=== PATIENT | female | born 1940 | race Caucasian/White ===

== ENCOUNTER 2016-11-07 19:49 | Inpatient (IN) | payer BC ==
[~2016-11-07] VITALS: Ht 157.5 cm; Wt 72.8 kg
--- NOTE | ~2016-11-07 | HP ---
History And Physical [facility] [address] [place] [place]. [address] NAME: DENISSE BENAVIDEZ : 40 STATUS : ADM IN [facility]#: [id number] AGE: 76 ADM/REG DATE : 11/07/16 MR#: [id number] REPORT SERV DATE: 11/08/16 DICTATED BY: JORGE WALL DATE: 11/07/16 REPORT STATUS : Draft TRANSCRIBED BY: MODL DATE: 11/07/16 DATE OF ADMISSION: 11/07/2016 CHIEF COMPLAINT: Generalized weakness and urinary tract infection. HISTORY OF PRESENT ILLNESS: This is a 76-year-old female with a history of diabetes mellitus, hypertension, and recently diagnosed urinary tract infection who presents to the emergency room at [facility] with the above-mentioned complaint. History is obtained from the patient and reviewing data available on the [facility]. According to Mrs. Benavidez, she had been to [facility] in [facility] yesterday where she was diagnosed with urinary tract infection. She was prescribed a course of outpatient Macrobid, but she took two doses and started having nausea and some diarrhea as well. She could take no more of that medicine. Meanwhile, she continued to get worse. She started having profound weakness and could not perform activities of daily living or even walk across her own home. She decided to come to the emergency room here to be re- evaluated. In the emergency room, she had severe sepsis with a procalcitonin of 0.73. Her temperature was 100.2 degrees Fahrenheit. Her blood pressure was 108/56, and platelets were 95. Hospitalist Service is asked to admit her for further evaluation and treatment. At the time of my evaluation, she denied any chest pain or palpitations. She had no orthopnea. She had no cough, hemoptysis, night sweats, or weight loss. She denied any recent falls or loss of consciousness. No history of fevers or chills that she measured. She did have a history of nausea, but no vomiting. She did have diarrhea. No history of hematemesis, hematochezia, or hematuria. No other history of recent travel or exposures other than those mentioned above. PAST MEDICAL HISTORY: Her past medical history is significant for history of diabetes mellitus and hypertension. SOCIAL HISTORY: She does not smoke, drink, or use recreational drugs. FAMILY HISTORY: Noncontributory. MEDICATIONS: Her medications at home were reviewed by me in the chart today and reordered by me. REVIEW OF SYSTEMS: As in history of present illness. All other systems were reviewed in detail and are quite unremarkable. PHYSICAL EXAMINATION: GENERAL: This is a pleasant, 76-year-old, not in any acute distress. She is alert, awake, oriented to time, place, and person. History And Physical [address] [address] NAME: DENISSE BENAVIDEZ : 40 STATUS : ADM IN PAT#: [id number] AGE: 76 ADM/REG DATE : 11/07/16 MR#: [id number] REPORT SERV DATE: 11/08/16 DICTATED BY: JORGE WALL DATE: 11/07/16 REPORT STATUS : Draft TRANSCRIBED BY: PILAR DATE: 11/07/16 HEENT: Her head is atraumatic and normocephalic. Her pupils are equal, reacting to light and accommodating. External ocular muscles are intact. Membranes are moist and pink. Sclerae are nonicteric. NECK: Supple with no jugular venous distention, lymphadenopathy, or thyromegaly. LUNGS: Clear to auscultation with no wheezes, rubs, or crackles. HEART: Heart sounds were regular with no murmurs, rubs, or gallops. ABDOMEN: Soft and nontender. Bowel sounds are present. EXTREMITIES: Showed no cyanosis, clubbing, or edema. NEURO: Grossly intact. No focal, sensory or motor deficits. Higher functions appear intact. Gait was not examined. VITAL SIGNS: Her vital signs today showed a temperature of 100.2 degrees Fahrenheit, pulse was 99, respirations were 20 a minute, blood pressure upon arrival was 108/56, and oxygen saturations were 94% breathing 2 liters of oxygen via nasal cannula. LABORATORY DATA: Reviewed on the [facility] showed a sodium of 130, potassium was 3.4, chloride 93, CO2 of 25, BUN was 25 with a creatinine of 1.38, which is slightly above her baseline. Blood glucose was 200. Alkaline phosphatase, ALT, and AST were within normal limits. Troponin was 0.02. Lactate was 1.5, however, her procalcitonin was elevated at 0.73. CBC showed a white blood cell count of 5500; hemoglobin was 13; hematocrit 36.7; and platelet count was down to 95,000, it was 141,000 yesterday, and more than 200,000 on 08/09/2016. Her prothrombin time was 15.3 today with an INR of 1.2. Urinalysis today was unremarkable, but yesterday when she had presented to [facility], she had moderate leukocyte esterase, nitrite was negative, she had 10 wbc's, and rare bacteria. Films of the chest x-ray done in the emergency room today was reviewed by me on the PACS today and interpreted by me. Per my interpretation, there is normal bony architecture with no cardiomegaly. There were no new lung infiltrates or pleural effusions seen. IMPRESSION: 1. Urinary tract infection. 2. Severe sepsis. 3. Generalized weakness. 4. Failed outpatient therapy. 5. Thrombocytopenia. 6. Diabetes mellitus with hyperglycemia. 7. Hypokalemia. 8. Acute kidney injury. 9. Hypertension. PLAN: We will admit Mrs. Benavidez to a cardiac telemetry bed for close monitoring. After cultures are drawn, we will start her on empiric IV antibiotics for sepsis. We will start her on cefepime and vancomycin. We will follow aggressive volume replacement with 2 liters of lactated Ringer's now and then continue maintenance therapy. We will measure outputs and weights as well. We will replace her potassium meanwhile, follow this with chemistry and electrolytes in the morning along with a CBC with a differential as well. We will follow her lactate as well. We will start her on blood sugar control with NovoLog given subcutaneously per sliding scale and start her on SCDs for DVT prophylaxis. I have discussed the above plans with the patient. Her questions were answered and she is History And Physical [address] [place]. [address] NAME: DENISSE BENAVIDEZ : 40 STATUS : ADM IN [facility]#: [id number] AGE: 76 ADM/REG DATE : 11/07/16 MR#: [id number] REPORT SERV DATE: 11/08/16 DICTATED BY: JORGE WALL DATE: 11/07/16 REPORT STATUS : Draft TRANSCRIBED BY: PILAR DATE: 11/07/16 agreeable to the above recommendations. MR/PILAR Jorge Wall M.D. / [id number] CC: MD Vladimir Barker M.D.
--- NOTE | ~2016-11-07 | CN ---
Consultation Report [facility] [address] [place]. [address] NAME: DENISSE VYAS : 40 STATUS : ADM IN [facility]#: [id number] AGE: 76 ADM/REG DATE : 11/07/16 MR#: [id number] REPORT SERV DATE: 11/09/16 DICTATED BY: WALTER PHILLIPS DATE: 11/09/16 REPORT STATUS : Draft TRANSCRIBED BY: MODL DATE: 11/09/16 INFECTIOUS DISEASE CONSULT DATE OF CONSULTATION: REASON FOR REFERRAL: Evaluation and treatment of unexplained fever. HISTORY OF PRESENT ILLNESS: The patient is a 76-year-old female. She has history of hypertension, diabetes, which she manages as an outpatient. She is very healthy for age, mentioning the fact she has not been hospitalized since her last child was born 55 years ago. She was doing well at home until about five days ago when she began feeling abruptly ill with malaise, then fevers, marked weakness to the point she could hardly get up and get around, achiness all over, somewhat of a headache, although, she describes it as aching in the posterior neck that radiated up into her head. She was seen in the emergency room four days ago and told she had urinary tract infection, given Macrodantin and only at that point did she get any gastrointestinal symptoms, nausea, and diarrhea, and those went away when she stopped that antibiotic. On 11/07/2016, she was getting worse, so she came in and was admitted. She has since had worsening fevers first to 101, now over 102. Blood cultures were sent thus far those are negative. A chest x-ray showed no infiltrate. Urinalysis was not consistent with infection. She had no abdominal pain or findings on exam. No rashes signs of cellulitis or soft tissue infection. Of note, her labs show a steadily worsening white blood cell count going from 5.5 on 11/06/2016, to 3.2 today. Mild anemia 35.8, admission 34.3, platelets a 141 at presentation, now down to 65, unremarkable differential on the white blood cell count. She has a mild elevation in creatinine and also a mild elevation in AST which was actually going up between 11/06/2016 and 11/07/2016. Her symptoms continued to be relatively nonspecific with achiness, fever, chills, sweats, and pain. [place] She works a lot in her yard and is frequently exposed to ticks or not does mention really any other organisms. She has had no animal exposure. No travel exposures. Lives with her who is well. She has been exposed to young children foster children of a grandchild, but none of them have been ill with febrile illnesses that she is aware of. No other unusual environmental exposures. PAST MEDICAL HISTORY: Otherwise unremarkable. MEDICATIONS: She is on vancomycin and cefepime, that have been started empirically here. ALLERGIES: NO KNOWN ANTIMICROBIAL ALLERGIES. SOCIAL HISTORY: She lives at home with her . Nonsmoker. No history of alcohol or substance abuse. FAMILY HISTORY: Noncontributory. PHYSICAL EXAMINATION: Consultation Report [address] [place]. [address] NAME: DENISSE VYAS : 40 STATUS : ADM IN [facility]#: [id number] AGE: 76 ADM/REG DATE : 11/07/16 MR#: [id number] REPORT SERV DATE: 11/09/16 DICTATED BY: WALTER PHILLIPS DATE: 11/09/16 REPORT STATUS : Draft TRANSCRIBED BY: PILAR DATE: 11/09/16 GENERAL: Mildly ill-appearing elderly female, in no acute distress. Alert and oriented. VITAL SIGNS: Her temperature did reach 102.4 last evening, it is 98.9 at present, with a pulse of 69, respirations 16, blood pressure 96/55, weight 72 kg. HEENT: Sclerae are clear. There are no oropharyngeal lesions. NECK: Supple without meningeal signs or lymphadenopathy. LUNGS: Clear. HEART: Regular rate and rhythm. No murmurs appreciated. ABDOMEN: Soft, nontender. Positive bowel sounds. No masses or hepatosplenomegaly. EXTREMITIES: Without clubbing, cyanosis, or edema. No swollen, red, or hot joints. No skin lesions or rashes. LABORATORY DATA: CBC as previously described. BUN and creatinine are 32 and 1.42. Transaminases as previously described. Her procalcitonin 0.73 at admission, 0.95 today stated blood cultures are negative. IMPRESSION: With the negative workup and looking at her blood work it all looks most suggestive Ehrlichiosis and with her tick exposure I think that is by far in a way the most likely diagnosis. Cytomegalovirus could also cause this sort of presentation with these lab abnormalities, but it would be unusual in a 76-year-old, and she has had no obvious exposure. I do not see any other likely infectious explanations at this point. RECOMMENDATIONS: 1. We will begin doxycycline with a loading dose first four doses. 2. Stop further antibiotics. 3. Check a PCR for Ehrlichiosis. Finally, I will follow the patient with you. 4. I appreciate very much your consulting on this patient. ALIVIA Watler Phillips M.D. / [id number] CC: Minnie Malone M.D.
--- NOTE | ~2016-11-07 | DS ---
Discharge Summary [facility] [address] [place]. [address] NAME: DENISSE VYAS : 40 STATUS : DIS IN PAT#: [id number] AGE: 76 ADM/REG DATE : 11/07/16 MR#: [id number] REPORT SERV DATE: 11/13/16 DICTATED BY: ASHLEY PEDROZA DATE: 11/12/16 REPORT STATUS : Draft TRANSCRIBED BY: MODYadiel DATE: 11/12/16 ADMISSION DATE: 11/07/2016 DISCHARGE DATE: 11/12/2016 DISCHARGE DIAGNOSES: 1. Ehrlichiosis. 2. Febrile illness secondary to above. Sepsis secondary to above. 3. Acute kidney injury, resolved. 4. Metabolic acidosis, resolved. 5. Dehydration, resolved. 6. Generalized weakness, resolved. 7. Superficial thrombophlebitis. 8. Type 2 diabetes. 9. Failure to thrive, resolved. CONSULTS: Infectious Disease, Dr. Rafael Will. FOLLOWUP: 1. The patient should follow up with her primary care physician in one week for repeat CBC and for followup for superficial thrombophlebitis. 2. The patient should also follow up with the primary care physician for an outpatient repeat right upper extremity venous Doppler ultrasound to rule out any progression of her superficial thrombus. DISCHARGE MEDICATIONS: 1. Amlodipine 5 mg p.o. daily, doxycycline 100 mg p.o. q.12 hours for 12 days. The patient informed to remain upright for at least 30 minutes after taking antibiotic and to use a minimum of 8 ounces of fluids with antibiotics. 2. Eye drops q.h.s. 3. Januvia 100 mg p.o. daily. IMAGIN. Chest x-ray showing no acute cardiopulmonary process. 2. Venous Doppler ultrasound of the right upper extremity with acute appearing superficial venous thrombus involving the right cephalic vein from the mid right upper arm to the mid forearm level. No right upper extremity DVT identified. 3. Venous Doppler ultrasound of the bilateral lower extremity showing no evidence of acute DVT in the lower extremities. Read by Dr. Conor Huddleston. 4. Hospitalist, Dr. Jorge Gallardo; Dr. Pedroza. HOSPITAL COURSE: This is a 76-year-old female with a past medical history of hypertension, and type 2 diabetes, being followed by Dr. Vladimir Muñoz, primary care physician. The patient presented with a chief complaint of generalized weakness and suspected urinary tract infection. The patient states that she was recently diagnosed with urinary tract infection and was prescribed a course of Macrobid for which the patient completed approximately two doses and began to have loose stool, nausea overall, feeling weak, not tolerating much of Discharge Summary [facility] [address] [place]. [address] NAME: DENISSE VYAS : 40 STATUS : DIS IN PAT#: [id number] AGE: 76 ADM/REG DATE : 11/07/16 MR#: [id number] REPORT SERV DATE: 11/13/16 DICTATED BY: ASHLEY PEDROZA DATE: 11/12/16 REPORT STATUS : Draft TRANSCRIBED BY: PILAR DATE: 11/12/16 intake. She presented to [facility] ER with a procalcitonin of 0.73, mildly elevated, and a temperature of 100.2 and some thrombocytopenia of 95,000 platelets. She was admitted to the Hospitalist Service, initially suspected to have urinary tract infection, however, urine culture was negative. The patient continued to have some decreasing of her platelets, decreased from 95,000 down to 65,000 and low-grade fevers. The blood cultures were also no growth to date and also no signs of pneumonia. The patient states that she does frequent gardening. She denied any recent mosquito bites, but did confirm several tick bites. Infectious Disease was consulted, and the patient's antibiotic was changed over from IV Zosyn to doxycycline for suspected ehrlichiosis. The patient's ehrlichiosis PCR eventually came back positive. She was continued on her doxycycline. Her fevers resolved. Also, platelet count began to improve daily after doxycycline initiation, platelet count increased up to 98,000. The patient was informed to follow up with her primary care physician in one week for repeat CBC. Also, the patient remained afebrile and her failure to thrive resolved, and the patient was tolerating oral intake with improved functional capacity and not required any assistance with ambulation, much improved and doing a lot better. The patient also was informed of the diagnoses and also informed to refrain from tick bites. She was approved for discharge also by Infectious Disease, but she did have some swelling of the right upper extremity from her IV, found to have superficial cephalic vein thrombosis. Recommended to the patient to follow up with her primary care physician for an outpatient right upper extremity repeat venous Doppler ultrasound to rule out any progression of the thrombus to DVT, but there were no signs of DVT during her hospitalization. She was discharged to home much improved and ready to get home and clinically stable. BREANN/PILAR Ashley Pedroza M.D. / [id number] CC: Minnie Malone M.D.
[2016-11-07 21:27] LABS: ASCORBIC ACID (UR NOT ORDER) NEG (NEG); BILIRUBIN, URINE NEGATIVE (NEG); ER URINALYSIS TAT 0 Hrs 15 Mins; KETONE, URINE 20 MG/DL (NEG); LEUKOCYTE ESTERASE(NOT OR NEG (NEG); NITRITE (URINE) NEG (NEG); WBC (NOT ORDERED) (RFLEX) 3 (0-5)
[2016-11-07 21:33] LABS: BASOPHILS 0.4 %; BASOPHILS ABSOLUTE 0.02 10/3/uL (0.0-0.16); EOSINOPHILS 0 %; ER CBC TAT 0 Hrs 05 Mins; HEMATOCRIT 36.7 % (36.0-48.0); IMMATURE GRANULOCYTES 0.5 %; IMMATURE GRANULOCYTES ABSOLUTE 0.03 10/3/uL (0.0-0.11); LYMPHOCYTES 11.5 %; LYMPHOCYTES ABSOLUTE 0.63 10/3/uL (0.67-4.30); MEAN CORPUS HGB CONC 35.4 g/dL (32.0-36.0); MEAN CORPUSCULAR VOLUME 84.6 fL (80-100); MEAN PLATELET VOLUME 10.5 fL (9.2-13.0); MONOCYTES 10.2 %; MONOCYTES ABSOLUTE 0.56 10/3/uL (0.21-1.20); NEUTROPHILS 77.4 %; NEUTROPHILS ABSOLUTE 4.26 10/3/uL (2.02-8.40); RBC DISTRIBUTION WIDTH 13.1 % (12.0-16.0); RED CELL COUNT 4.34 10/6/uL (4.0-5.6); WHITE BLOOD CELLS 5.5 10/3/uL (4.5-10.5)
[2016-11-07 21:34] LABS: MANUAL DIFF NO %; PLATELET COUNT 95 10/3/uL (150-400)
[2016-11-07 21:42] LABS: INTERNATIONAL NORMAL RATI 1.2 UNITS (-); PARTIAL THROMBO TIME 32.1 SEC (22.5-37.2); PROTIME (NOT ORD) 15.3 SEC (12.0-14.5)
[2016-11-07 21:50] LABS: A/G RATIO 0.8 (0.7-1.9); ALBUMIN 3.4 G/DL (3.5-5.0); ALKALINE PHOSPHATASE 52 U/L (45-117); CALCIUM, SERUM 8.6 MG/DL (8.5-10.4); CHLORIDE, SERUM 93 MMOL/L (96-112); CO2 (CARBON DIOXIDE) 25 MMOL/L (24-34); CREATININE 1.38 MG/DL (0.55-1.02); GFR AFRICAN AMERICAN 43 ML/MIN (>=60); GFR NON AFRICAN AMERICAN 37 ML/MIN (>=60); GLUCOSE, SERUM 200 MG/DL (60-99); LACTATE 1.5 MMOL/L (0.3-2.4); POTASSIUM, SERUM 3.4 MMOL/L (3.5-5.3); SGOT(AST) 92 U/L (5-40); SGPT(ALT) 55 U/L (5-65); SODIUM, SERUM 130 MMOL/L (135-148); TOTAL BILIRUBIN 0.9 MG/DL (0-1.2); TOTAL PROTEIN 7.7 G/DL (6.0-8.5)
[2016-11-07 21:52] LABS: BUN (BLOOD UREA NITROGEN) 25 MG/DL (6-23); GLOBULIN 4.3 G/DL (2.5-4.1)
[2016-11-07] MEDS ORDERED: LOTE10 PO (22:00)
[2016-11-07] MEDS ORDERED: NORV5 PO (22:00)
[2016-11-07] MEDS ORDERED: MACROBID PO (22:01)
[2016-11-07] MEDS ORDERED: JANUVIA100 MG PO (22:01)
[2016-11-07] MEDS ORDERED: HCTZ25B PO (22:01)
[2016-11-07] MEDS ORDERED: OTC EYE DROPS OPH (22:02)
[2016-11-07 22:03] LABS: PROCALCITONIN 0.73 ng/mL (<0.5)
[2016-11-08 05:44] LABS: CALCIUM, SERUM 8.1 MG/DL (8.5-10.4); CHLORIDE, SERUM 96 MMOL/L (96-112); CO2 (CARBON DIOXIDE) 26 MMOL/L (24-34); CREATININE 1.38 MG/DL (0.55-1.02); GFR AFRICAN AMERICAN 43 ML/MIN (>=60); GFR NON AFRICAN AMERICAN 37 ML/MIN (>=60); POTASSIUM, SERUM 3.4 MMOL/L (3.5-5.3); SODIUM, SERUM 133 MMOL/L (135-148)
[2016-11-08 05:46] LABS: BUN (BLOOD UREA NITROGEN) 30 MG/DL (6-23); GLUCOSE, SERUM 117 MG/DL (60-99)
[2016-11-08 05:48] LABS: BASOPHILS 0.9 %; BASOPHILS ABSOLUTE 0.03 10/3/uL (0.0-0.16); EOSINOPHILS 0 %; HEMOGLOBIN 11.7 g/dL (12.0-16.0); IMMATURE GRANULOCYTES 0.9 %; IMMATURE GRANULOCYTES ABSOLUTE 0.03 10/3/uL (0.0-0.11); LYMPHOCYTES 17.8 %; LYMPHOCYTES ABSOLUTE 0.61 10/3/uL (0.67-4.30); MEAN CORPUS HGB CONC 35.7 g/dL (32.0-36.0); MEAN CORPUSCULAR HEMOGLOB 29.9 pg (26.0-34.0); MEAN CORPUSCULAR VOLUME 83.9 fL (80-100); MEAN PLATELET VOLUME 10.5 fL (9.2-13.0); MONOCYTES 13.7 %; MONOCYTES ABSOLUTE 0.47 10/3/uL (0.21-1.20); NEUTROPHILS 66.7 %; NEUTROPHILS ABSOLUTE 2.29 10/3/uL (2.02-8.40); PLATELET COUNT 83 10/3/uL (150-400); RBC DISTRIBUTION WIDTH 13.2 % (12.0-16.0); RED CELL COUNT 3.91 10/6/uL (4.0-5.6); WHITE BLOOD CELLS 3.4 10/3/uL (4.5-10.5)
[2016-11-08 05:49] LABS: HEMATOCRIT 32.8 % (36.0-48.0); MANUAL DIFF NO %
[2016-11-09 06:10] LABS: BASOPHILS 0.9 %; BASOPHILS ABSOLUTE 0.03 10/3/uL (0.0-0.16); EOSINOPHILS 0 %; HEMATOCRIT 34.3 % (36.0-48.0); HEMOGLOBIN 11.9 g/dL (12.0-16.0); IMMATURE GRANULOCYTES 0.6 %; IMMATURE GRANULOCYTES ABSOLUTE 0.02 10/3/uL (0.0-0.11); LYMPHOCYTES 14.2 %; LYMPHOCYTES ABSOLUTE 0.46 10/3/uL (0.67-4.30); MEAN CORPUS HGB CONC 34.7 g/dL (32.0-36.0); MEAN CORPUSCULAR HEMOGLOB 29.4 pg (26.0-34.0); MEAN CORPUSCULAR VOLUME 84.7 fL (80-100); MEAN PLATELET VOLUME 10.5 fL (9.2-13.0); MONOCYTES 10.8 %; MONOCYTES ABSOLUTE 0.35 10/3/uL (0.21-1.20); NEUTROPHILS 73.5 %; NEUTROPHILS ABSOLUTE 2.37 10/3/uL (2.02-8.40); PLATELET COUNT 65 10/3/uL (150-400); RBC DISTRIBUTION WIDTH 13.2 % (12.0-16.0); RED CELL COUNT 4.05 10/6/uL (4.0-5.6); WHITE BLOOD CELLS 3.2 10/3/uL (4.5-10.5)
[2016-11-09 06:15] LABS: MANUAL DIFF NO %
[2016-11-09 06:22] LABS: BUN (BLOOD UREA NITROGEN) 32 MG/DL (6-23); CALCIUM, SERUM 7.9 MG/DL (8.5-10.4); CHLORIDE, SERUM 103 MMOL/L (96-112); CO2 (CARBON DIOXIDE) 22 MMOL/L (24-34); CREATININE 1.42 MG/DL (0.55-1.02); GFR AFRICAN AMERICAN 41 ML/MIN (>=60); GFR NON AFRICAN AMERICAN 36 ML/MIN (>=60); GLUCOSE, SERUM 117 MG/DL (60-99); POTASSIUM, SERUM 3.7 MMOL/L (3.5-5.3); SODIUM, SERUM 134 MMOL/L (135-148)
[2016-11-09 06:30] LABS: PLATELET ESTIMATE DEC (ADEQUATE)
[2016-11-09 06:31] LABS: RBC MORPHOLOGY NORM (NORMAL)
[2016-11-09 07:26] LABS: PROCALCITONIN 0.95 ng/mL (<0.5)
[2016-11-09 13:34] LABS: INFLUENZA A SCREEN NEGATIVE (NEGATIVE); INFLUENZA B SCREEN NEGATIVE (NEGATIVE)
[2016-11-10 06:36] LABS: BASOPHILS 1.3 %; BASOPHILS ABSOLUTE 0.05 10/3/uL (0.0-0.16); EOSINOPHILS 0 %; HEMOGLOBIN 10.9 g/dL (12.0-16.0); IMMATURE GRANULOCYTES 0.5 %; IMMATURE GRANULOCYTES ABSOLUTE 0.02 10/3/uL (0.0-0.11); LYMPHOCYTES 37.3 %; LYMPHOCYTES ABSOLUTE 1.46 10/3/uL (0.67-4.30); MANUAL DIFF NO %; MEAN CORPUS HGB CONC 35.2 g/dL (32.0-36.0); MEAN CORPUSCULAR HEMOGLOB 29.9 pg (26.0-34.0); MEAN CORPUSCULAR VOLUME 84.9 fL (80-100); MONOCYTES 12.3 %; MONOCYTES ABSOLUTE 0.48 10/3/uL (0.21-1.20); NEUTROPHILS 48.6 %; PLATELET COUNT 67 10/3/uL (150-400); RBC DISTRIBUTION WIDTH 13.4 % (12.0-16.0); RED CELL COUNT 3.65 10/6/uL (4.0-5.6); WHITE BLOOD CELLS 3.9 10/3/uL (4.5-10.5)
[2016-11-10 06:50] LABS: BUN (BLOOD UREA NITROGEN) 29 MG/DL (6-23); CALCIUM, SERUM 8.1 MG/DL (8.5-10.4); CHLORIDE, SERUM 104 MMOL/L (96-112); CO2 (CARBON DIOXIDE) 20 MMOL/L (24-34); CREATININE 1.23 MG/DL (0.55-1.02); GFR AFRICAN AMERICAN 49 ML/MIN (>=60); GFR NON AFRICAN AMERICAN 43 ML/MIN (>=60); POTASSIUM, SERUM 3.5 MMOL/L (3.5-5.3); SODIUM, SERUM 135 MMOL/L (135-148)
[2016-11-10 06:52] LABS: GLUCOSE, SERUM 79 MG/DL (60-99)
[2016-11-10 06:59] LABS: BURR CELLS 1+ (3-10/OIF) (0-2/OIF); PLATELET ESTIMATE DEC (ADEQUATE); POIKILOCYTOSIS 1+ (5-10/OIF) (0-5/OIF)
[2016-11-10 07:31] LABS: PROCALCITONIN 0.81 ng/mL (<0.5)
[2016-11-10 09:56] LABS: SMEAR FOR ABNORMAL CELLS SEE PATHOLOGY REPORT
[2016-11-11 07:39] LABS: BASOPHILS 1.9 %; EOSINOPHILS 0.4 %; EOSINOPHILS ABSOLUTE 0.02 10/3/uL (0.0-0.53); HEMATOCRIT 31.7 % (36.0-48.0); HEMOGLOBIN 11.1 g/dL (12.0-16.0); IMMATURE GRANULOCYTES 0.6 %; IMMATURE GRANULOCYTES ABSOLUTE 0.03 10/3/uL (0.0-0.11); LYMPHOCYTES 44.5 %; MEAN CORPUSCULAR HEMOGLOB 29.8 pg (26.0-34.0); MEAN CORPUSCULAR VOLUME 85.2 fL (80-100); MEAN PLATELET VOLUME 10.3 fL (9.2-13.0); MONOCYTES 11.9 %; MONOCYTES ABSOLUTE 0.64 10/3/uL (0.21-1.20); NEUTROPHILS 40.7 %; RBC DISTRIBUTION WIDTH 13.7 % (12.0-16.0); RED CELL COUNT 3.72 10/6/uL (4.0-5.6); WHITE BLOOD CELLS 5.4 10/3/uL (4.5-10.5)
[2016-11-11 07:41] LABS: MANUAL DIFF NO %; PLATELET COUNT 98 10/3/uL (150-400)
[2016-11-11 07:56] LABS: BUN (BLOOD UREA NITROGEN) 28 MG/DL (6-23); CALCIUM, SERUM 8.5 MG/DL (8.5-10.4); CHLORIDE, SERUM 107 MMOL/L (96-112); CO2 (CARBON DIOXIDE) 19 MMOL/L (24-34); CREATININE 1.02 MG/DL (0.55-1.02); GFR AFRICAN AMERICAN 62 ML/MIN (>=60); GFR NON AFRICAN AMERICAN 53 ML/MIN (>=60); GLUCOSE, SERUM 71 MG/DL (60-99); POTASSIUM, SERUM 3.6 MMOL/L (3.5-5.3); SODIUM, SERUM 138 MMOL/L (135-148)
[2016-11-12 05:49] LABS: CALCIUM, SERUM 8.9 MG/DL (8.5-10.4); CHLORIDE, SERUM 109 MMOL/L (96-112); CO2 (CARBON DIOXIDE) 22 MMOL/L (24-34); CREATININE 0.98 MG/DL (0.55-1.02); GFR AFRICAN AMERICAN 65 ML/MIN (>=60); GFR NON AFRICAN AMERICAN 56 ML/MIN (>=60); POTASSIUM, SERUM 3.4 MMOL/L (3.5-5.3); SODIUM, SERUM 141 MMOL/L (135-148)
[2016-11-12 05:50] LABS: BUN (BLOOD UREA NITROGEN) 22 MG/DL (6-23); GLUCOSE, SERUM 107 MG/DL (60-99)
[2016-11-12] MEDS ORDERED: DORYX100 MG PO (14:55)
== END 2016-11-12 16:03 | disposition home or self-care (01) | DRG 871 ==
LOC: ER 19:49 → 1SO 23:02
PROVIDERS: Internal Medicine; Specialist
DX: A41.9 Sepsis, unspecified organism (principal); N17.0 Acute kidney failure with tubular necrosis; D69.6 Thrombocytopenia, unspecified; E11.65 Type 2 diabetes mellitus with hyperglycemia; I80.9 Phlebitis and thrombophlebitis of unspecified site; E86.0 Dehydration; A77.40 Ehrlichiosis, unspecified; R65.20 Severe sepsis without septic shock; E87.6 Hypokalemia; I10 Essential (primary) hypertension; Z79.899 Other long term (current) drug therapy; R62.7 Adult failure to thrive
CPT/HCPCS: 71010; 80048; 80053; 81001; 82962; 83605; 83735; 84100; 84132; 84145; 85025; 85610; 85730; 87040; 87070; 87798; 87804; 87880; 93970; 93971; 97161-GP; 99285; A9270-GY; J0692; J1652; J3370